=== PATIENT | female | born 1960 | race Caucasian/White ===

== ENCOUNTER 2016-12-30 09:59 | Emergency (ER) | payer OTHER ==
--- NOTE | 2016-12-30 11:40 | ED CLINICAL REPORT ---
Clinical Report - Physicians/Mid Levels [facility] [address] [place] [address] 12/30/2016 9:58 Patient: NITO KAUFFMAN PROGRESS AND PROCEDURES Course of Care: Left AMA - Without being seen. (Electronically signed by Gibran Hammond MD 12/30/2016 11:45)
--- NOTE | 2016-12-30 11:40 | ED NURSING NOTES ---
Clinical Report - Nurses [facility] [address] [place] [address] 12/30/2016 9:58 [id number] Triage time 10:Dec 30 2016. Acuity: LEVEL 3. Chief Complaint: NECK PAIN and BACK PAIN. --10:10 Connie Funez R.N. 10:05 12/30/16. BP: 131/101. HR: 110. RR: 18. O2 saturation: 99%. Temp: 98.5 F. Pain level now 04/17. --10:10 Connie Funez R.N. Weight: 70.3 kg stated. Height/Length: 68 inches Per Patient. BMI: 23.6. --10:09 Connie Funez R.N. Medications CeleXA Oral. Hyrdochlorothiazide 25 mg, daily. --10:06 Connie Funez R.N. TiZANidine HCl Oral. --10:07 Connie Funez R.N. Vicodin Oral. --10:07 Connie Funez R.N. Allergies Doxycycline. --10:07 Connie Funez R.N. History Arrived by private vehicle. Historian: patient. Onset. (Past couple of days). ( Is helping someone move and was carrying a cat tree down the stairs and she thinks it hurt her back.). No history of recent trauma. No numbness, weakness, tingling, trouble walking or fever. No extremity pain. PAST MEDICAL HX: Tetanus status: up-to-date. The patient is post-menopausal. SOCIAL HX: Heavy tobacco smoker- 1 pack per day. No alcohol use or drug use. SELF HARM ASSESSMENT: A self harm assessment was performed. The patient answered "no" to the question "Have you recently felt down, depressed, or hopeless?" and "Do you have thoughts of harming or killing yourself?". FALL RISK ASSESSMENT: Fall risk assessment completed. No fall risk identified. NUTRITIONAL RISK ASSESSMENT: The nutritional risk assessment revealed no deficiencies. FUNCTIONAL ASSESSMENT: Functional assessment: no impairments noted. LEARNING NEEDS ASSESSMENT: The learning needs assessment revealed no barriers. ABUSE ASSESSMENT: Abuse assessment: (yes) The patient was asked "Do you feel safe in your home?". SKIN INTEGRITY ASSESSMENT: Skin integrity risk assessment completed. No skin integrity risk identified. --10:10 Connie Funez R.N. PROBLEMS: Back Pain. Tendonitis. Myofascial Strain. Intervertebral Disc Disease. Dental Abscess. Strep Throat. Abscess. Lumbar Strain. Immunizations. Arthritis. Chronic Back Pain. Vomiting. Hypokalemia. Dental Pain. Dental Caries. --10:07 Connie Funez R.N. ADDITIONAL SURGERIES: Carpal Tunnel Surgery. Shoulder Surgery. Tubal Ligation. --10:07 Connie Funez R.N. Interventions ID and allergy band on patient. --10:10 Connie Funez R.N. PHYSICAL ASSESSMENT Ambulatory to room. GENERAL / NEURO / PSYCH: Alert. Oriented X 4. Appears anxious. RESPIRATORY: Respirations not labored. Chest nontender. Breath sounds within normal limits. CVS: Normal heart rate and rhythm. Capillary refill less than 2 seconds. GI / : Abdomen soft and nontender. Bowel sounds within normal limits. EXTREMITIES: Sensation intact in extremities. ROM of extremities within normal limits. BACK: Normal inspection of the neck and back. ROM of neck and back within normal limits. Soft tissue tenderness. --10:10 Connie Funez R.N. NURSING PROGRESS NOTES The initial plan of care for this patient includes an assessment with efforts to address patient positioning, appropriate ambient lighting and comfortable environmental temperature; impairment of the musculoskeletal system. Pulse oximeter and NIBP monitor placed on patient. Cold pack applied. Patient gowned. Head of bed elevated 90 degrees. Reassurance given. Call light placed in reach. Side rails up x 1. Bed placed in lowest position. Brakes of bed on. --10:11 Connie Funez R.N. 11:00 12/30/16. BP: 127/92. HR: 110. RR: 20. O2 saturation: 94%. 10:15 12/30/16. BP: 135/86. HR: 104. RR: 20. O2 saturation: 95%. --12:03 Connie Funez R.N. DISPOSITION / DISCHARGE Departure time: 11:30 Dec 30 2016. The patient left prior to discharge education being provided. The patient left the Emergency Department without being seen by a physician and completion of treatment and against medical advice; patient was unaccompanied. The patient appears to be alert, oriented x4, coherent and in no acute distress. Gown found on bed. Unable to locate patient. Patient paged once with no response. The patient stated is leaving the ED due to the long waiting time. Notified the ED physician and charge nurse of patient departure. Prior to leaving the ED, she was advised to stay for completion of treatment. She was informed of the risks of leaving and verbalized understanding of these risks. Patient refused to sign form prior to leaving. She left the Emergency Department ambulatory and via private vehicle. --11:57 Connie Funez R.N. Locked/Released at 12/30/2016 12:03 by Connie Funez R.N.
--- NOTE | 2016-12-30 11:40 | ED CLINICAL REPORT ---
Clinical Report - Physicians/Mid Levels [place] [address] [place] [place] [address] 12/30/2016 9:58 Patient: NITO KAUFFMAN PROGRESS AND PROCEDURES Course of Care: Left AMA - Without being seen. (Electronically signed by Gibran Hammond MD 12/30/2016 11:45)
--- NOTE | 2016-12-30 12:04 | ED MED RECONCILIATION SUMMARY ---
Patient: NITO KAUFFMAN Medication Reconciliation Report Located Within [facility] VisitID: [id number] [address] [place] [address] 56y, F Registration Date/Time: 12/30/2016 Weight: 70.3 kg Height/Length: 68 in. BMI: 23.6 ALLERGIES: Doxycycline The patient's Home Medications are listed below: THE FOLLOWING MEDICATIONS NEED TO BE RECONCILED: CeleXA Oral Hyrdochlorothiazide 25 mg, daily TiZANidine HCl Oral Vicodin Oral The source(s) of the original Home Medication information: Not obtained. The following Medications were given to the patient in the Emergency Department: None. The following Medications were prescribed to the patient: None.
--- NOTE | 2016-12-30 12:04 | ED MED RECONCILIATION SUMMARY ---
Patient: NITO KAUFFMAN Medication Reconciliation Report [facility] VisitID: [id number] [address] [address] 56y, F Registration Date/Time: 12/30/2016 Weight: 70.3 kg Height/Length: 68 in. BMI: 23.6 ALLERGIES: Doxycycline The patient's Home Medications are listed below: THE FOLLOWING MEDICATIONS NEED TO BE RECONCILED: CeleXA Oral Hyrdochlorothiazide 25 mg, daily TiZANidine HCl Oral Vicodin Oral The source(s) of the original Home Medication information: Not obtained. The following Medications were given to the patient in the Emergency Department: None. The following Medications were prescribed to the patient: None.
--- NOTE | 2016-12-30 12:04 | ED MAR SUMMARY ---
..... Medication Administration Record [facility] [address] [place], [place] [id number] Patient: NITO KAUFFMAN Visit ID: [id number] 56y, F Weight: 70.3 kg Height/Length: 68 in BMI: 23.6 ALLERGIES: Doxycycline
--- NOTE | 2016-12-30 12:04 | ED MAR SUMMARY ---
..... Medication Administration Record [facility] [address] [place], [place] [id number] Patient: NITO KAUFFMAN Visit ID: [id number] 56y, F Weight: 70.3 kg Height/Length: 68 in BMI: 23.6 ALLERGIES: Doxycycline
== END 2016-12-30 11:40 | disposition left against medical advice (07) ==
LOC: ED SRH 09:59
DX: Z53.21 Procedure and treatment not carried out due to patient leaving prior to being seen by health care provider (principal)

== ENCOUNTER 2017-01-21 14:14 | Emergency (ER) | payer OTHER ==
--- NOTE | 2017-01-21 14:48 | ED CLINICAL REPORT ---
Clinical Report - Physicians/Mid Levels [facility] [address] [place] [place] [address] 01/21/2017 14:15 Patient: NITO KAUFFMAN Time Seen: 1436; upon arrival, initial patient contact, initial documentation, patient care assumed. Arrived- By private vehicle. Historian- patient. HISTORY OF PRESENT ILLNESS Chief Complaint: BACK PAIN and CHRONIC BACK PAIN. It is described as being severe and in the area of the right lower lumbar spine, right SI joint and right gluteus and radiating to the right hip and thigh. The quality is noted to be "pain" and similar to prior episodes. Modifying factors- worsened by walking. Not relieved by anything. Onset- years and it is still present (worse 2 weeks ago). No bladder dysfunction, bowel dysfunction, sensory loss or motor loss. Additional history - pt asking for soma, then ultram, then a nerve block, then something to decrease pressure on her nerves. Patient denies an injury but injury to the head or neck. No other injury. Similar symptoms previously: Chronically, as bad. Recent medical care: Not recently seen/assessed. REVIEW OF SYSTEMS No difficulty with urination, urinary frequency, hematuria, difficulty breathing or chest pain. No abdominal pain. All systems otherwise negative, except as recorded above. PAST HISTORY See nurses notes. PROBLEMS: Back Pain. Tendonitis. Myofascial Strain. Intervertebral Disc Disease. Dental Abscess. Strep Throat. Abscess. Lumbar Strain. Immunizations. Arthritis. Chronic Back Pain. Vomiting. Hypokalemia. Dental Pain. Dental Caries. LNMP - Last Normal Menstrual Period. --14:35 Kisha Che R.N. ADDITIONAL SURGERIES: Carpal Tunnel Surgery. Shoulder Surgery. Tubal Ligation. --14:35 Kisha Che R.N. SOCIAL HISTORY Heavy tobacco smoker. No alcohol use or drug use. No recent travel. Is a local resident. FAMILY HISTORY Negative. ADDITIONAL NOTES The nursing notes have been reviewed with agreement regarding the chief complaint, HPI, ROS, PMH and patient medications and allergies. PHYSICAL EXAM Vital Signs: 01/21/2017 14:31 BP: 111/85. HR: 95. RR: 20. O2 saturation: 98%. Temp: 97.9 F. Pain level now: 04/17. Have been reviewed as normal and appear to be correct. Appearance: Alert. No acute distress. Anxious. (pt appears under the influence). Neck: Normal inspection. Neck nontender. Painless ROM. CVS: Heart sounds normal. Pulses normal. Respiratory: No respiratory distress. Breath sounds normal. Abdomen: No visible injury. Soft and nontender. Back: Normal inspection. No tenderness. Painless ROM. Skin: Skin warm and dry. Normal skin color. No rash. Normal skin turgor. Extremities: Extremities exhibit normal ROM. Extremities nontender. Neuro: Oriented X 3. Mood/affect normal. No motor deficit. No sensory deficit. PROGRESS AND PROCEDURES Course of Care: pt has uma for frequent narcs, last rx 4/5 hydrocodone 5mg #84, over 1,800 pills and monthly rx's, recommendations for no narcs, opiods, controlled substances in ER, see report for full details tx options discussed, pt aware that no narcs or controlled substances would be given, pt stated she had some motrin already at home, willing to try the toradol shot and whatever else I would give her. Patient counseled in person regarding the patient's stable condition and diagnosis. Differential Diagnosis: I considered Musculo-skeletal strain, retroperitoneal hematoma, disk protrusion, vertebral fracture, facet syndrome, sacroiliac joint strain, sciatica, osteoarthritis, lumbar spondylosis, spinal stenosis, ankylosing spondylitis and sacroiliac joint inflammation as a possible cause of back pain in this patient. This is a partial list of diagnoses considered. (substance abuse). Above considerations are based on history and physical exam. Differential diagnosis was discussed with patient. Disposition: Discharged home in good and improved condition (14:47). Condition: good and stable. CLINICAL IMPRESSION Chronic nontraumatic lumbar back pain. Sciatica present on the right. No radiculopathy or neurological deficit. INSTRUCTIONS Warnings: GENERAL WARNINGS: Return or contact your physician immediately if your condition worsens or changes unexpectedly, if not improving as expected, or if other problems arise. SPECIFICALLY, return if you develop incontinence of urine (loss of bladder control). Prescription Medications: Medrol Dosepak: take according to package directions. Dispense one (1) dosepak. No refills. Substitution is permissible. Follow-up: Follow up with your doctor in about one week as needed. Call for an appointment. Summary of care provided to patient. Understanding of the discharge instructions verbalized by patient. (Electronically signed by Jaki Herrera A.R.N.P. 01/21/2017 17:33)
--- NOTE | 2017-01-21 14:48 | ED NURSING NOTES ---
Clinical Report - Nurses [facility] [address] [place] [address] 01/21/2017 14:15 Patient: NITO KAUFFMAN TRIAGE Acuity: LEVEL 4. Chief Complaint: RIGHT LOWER EXTREMITY PAIN. Alert. No acute distress. SEPSIS SCREEN: Sepsis Screen. Negative (no infection suspected/documented). [place] COMA SCORE: [place] Coma Scale: 15- eyes open spontaneously (4); best verbal response- oriented x 4 (5); best motor response- obeys commands (6). --14:37 Kisha Che R.N. 14:31 01/21/17. BP: 111/85. HR: 95. RR: 20. O2 saturation: 98% on room air. Temp: 97.9 F (oral). Pain level now: 04/17. --14:37 Kisha Che R.N. Weight: 68 kg stated. Height/Length: 66 inches Per Patient. BMI: 24.2. --14:35 Kisha Che R.N. Medications CeleXA Oral. TiZANidine HCl Oral. Vicodin Oral. --14:35 Kisha Che R.N. HydrOXYzine HCl Oral. --14:35 Kisha Che R.N. Medication/allergy information source: the patient. --14:37 Kisha Che R.N. Allergies Doxycycline. --14:35 Kisha Che R.N. History Arrived by private vehicle. Historian: patient. Unaccompanied. Primary physician (Aleksey). No injury occurred. This occurred (2 weeks ago). ( Pt reports pain from her right buttock to the bottom of her right foot. She reports she has been moving some heavy objects.). 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 PAST MEDICAL HX: The patient is post-menopausal. SOCIAL HX: Current every day heavy tobacco smoker (cigarette)- less than 1 pack per day. No alcohol use or drug use. FALL RISK ASSESSMENT: Fall risk assessment completed. No fall risk identified. NUTRITIONAL RISK ASSESSMENT: The nutritional risk assessment revealed no deficiencies. FUNCTIONAL ASSESSMENT: Functional assessment: no impairments noted. LEARNING NEEDS ASSESSMENT: The learning needs assessment revealed no barriers. SKIN INTEGRITY ASSESSMENT: Skin integrity risk assessment completed. No skin integrity risk identified. --14:37 Kisha Che R.N. PROBLEMS: Back Pain. Tendonitis. Myofascial Strain. Intervertebral Disc Disease. Dental Abscess. Strep Throat. Abscess. Lumbar Strain. Immunizations. Arthritis. Chronic Back Pain. Vomiting. Hypokalemia. Dental Pain. Dental Caries. LNMP - Last Normal Menstrual Period. --14:35 Kisha Che R.N. ADDITIONAL SURGERIES: Carpal Tunnel Surgery. Shoulder Surgery. Tubal Ligation. --14:35 Kisha Che R.N. Assessment GENERAL / NEURO / PSYCH: Alert. Oriented X 4. Appears in no acute distress. Patient appears calm and cooperative. RESPIRATORY: Respirations not labored. CVS: Capillary refill less than 2 seconds. GI / : Abdomen soft and nontender. SKIN: Mucous membranes are pink. Skin is warm and dry. --14:37 Kisha Che R.N. Interventions ID band on patient. To treatment room. --14:37 Kisha Che R.N. PHYSICAL ASSESSMENT Ambulatory to room. GENERAL / NEURO / PSYCH: Oriented X 4. Alert. Appears in no acute distress. EXTREMITIES: Extremity pulses are within normal limits. Extremities exhibit normal ROM. Neuro-vascular status intact to the extremity. Normal gait. SKIN: Skin intact. Skin is warm and dry. --14:37 Kisha Che R.N. NURSING PROGRESS NOTES 14:38 01/21/17. Patient gowned. Two patient identifiers checked. Call light placed in reach. Side rails up x 1. Patient ready for evaluation- chart flagged and RAG SORTER notified. --14:38 Kisha Che R.N. 14:54 01/21/2017 Toradol (Ketorolac Tromethamine) IM 60 mg given. Given in the left gluteus marlyn. Allergies verified and confirmed 5 rights. --14:54 Kisha Che R.N. DISPOSITION / DISCHARGE Departure time: 15:00 Jan 21 2017. Condition at departure: unchanged and stable. No learning barriers present. Discharge instructions provided and reviewed with the patient. Reviewed medication(s) side effects, precautions and dosing information. Prescription(s) given to the patient. Patient verbalized understanding. Written instructions provided in Brazilian. The patient was discharged by the nurse practitioner. She was discharged home. She left the Emergency Department ambulatory and via private vehicle. --15:13 Kisha Che R.N. Locked/Released at 01/21/2017 15:14 by Kisha Che R.N.
--- NOTE | 2017-01-21 14:48 | ED ORDER SUMMARY ---
..... Patient: NITO KAUFFMNA OrderSheet [facility] VisitID: [id number] [address] [place] [address] 57y, F Registration Date/Time: 01/21/2017 ORDER SHEET Weight: 68.0 kg (stated) Allergies: Doxycycline GENERAL ORDERS: MEDICATION ORDERS: Toradol IM 60 mg (NOW) (14:42 01/21/2017 HBivens A.R.N.P.) (Ack 14:47 MWinterer R.N.) (14:54 MWinterer R.N.) IV FLUIDS: ORDER SHEET NOTES: [Electronically signed by Kisha Che R.N. (15:14 01/21/2017)] [Electronically signed by Jaki HerreraR.N.P. (17:33 01/21/2017)] [Electronically locked/signed by Kisha Che R.N. (15:14 01/21/2017)]
--- NOTE | 2017-01-21 14:48 | ED ORDER SUMMARY ---
..... Patient: NITO KAUFFMAN OrderSheet [facility] VisitID: [id number] [address] [place] [address] 57y, F Registration Date/Time: 01/21/2017 ORDER SHEET Weight: 68.0 kg (stated) Allergies: Doxycycline GENERAL ORDERS: MEDICATION ORDERS: Toradol IM 60 mg (NOW) (14:42 01/21/2017 HBivens A.R.N.P.) (Ack 14:47 MWinterer R.N.) (14:54 MWinterer R.N.) IV FLUIDS: ORDER SHEET NOTES: [Electronically signed by Kisha Che R.N. (15:14 01/21/2017)] [Electronically signed by Jaki HerreraR.N.P. (17:33 01/21/2017)] [Electronically locked/signed by Kisha Che R.N. (15:14 01/21/2017)]
--- NOTE | 2017-01-21 14:48 | ED NURSING NOTES ---
Clinical Report - Nurses [facility] [address] [place] [address] 01/21/2017 14:15 Patient: NITO KAUFFMAN TRIAGE Acuity: LEVEL 4. Chief Complaint: RIGHT LOWER EXTREMITY PAIN. Alert. No acute distress. SEPSIS SCREEN: Sepsis Screen. Negative (no infection suspected/documented). [place] COMA SCORE: [place] Coma Scale: 15- eyes open spontaneously (4); best verbal response- oriented x 4 (5); best motor response- obeys commands (6). --14:37 Kisha Che R.N. 14:31 01/21/17. BP: 111/85. HR: 95. RR: 20. O2 saturation: 98% on room air. Temp: 97.9 F (oral). Pain level now: 04/17. --14:37 Kisha Che R.N. Weight: 68 kg stated. Height/Length: 66 inches Per Patient. BMI: 24.2. --14:35 Kisha Che R.N. Medications CeleXA Oral. TiZANidine HCl Oral. Vicodin Oral. --14:35 Kisha Che R.N. HydrOXYzine HCl Oral. --14:35 Kisha Che R.N. Medication/allergy information source: the patient. --14:37 Kisha Che R.N. Allergies Doxycycline. --14:35 Kisha Che R.N. History Arrived by private vehicle. Historian: patient. Unaccompanied. Primary physician (Aleksey). No injury occurred. This occurred (2 weeks ago). ( Pt reports pain from her right buttock to the bottom of her right foot. She reports she has been moving some heavy objects.). Treatment SUPERVISOR CLAM BED: None. PAST MEDICAL HX: The patient is post-menopausal. SOCIAL HX: Current every day heavy tobacco smoker (cigarette)- less than 1 pack per day. No alcohol use or drug use. FALL RISK ASSESSMENT: Fall risk assessment completed. No fall risk identified. NUTRITIONAL RISK ASSESSMENT: The nutritional risk assessment revealed no deficiencies. FUNCTIONAL ASSESSMENT: Functional assessment: no impairments noted. LEARNING NEEDS ASSESSMENT: The learning needs assessment revealed no barriers. SKIN INTEGRITY ASSESSMENT: Skin integrity risk assessment completed. No skin integrity risk identified. --14:37 Kisha Che R.N. PROBLEMS: Back Pain. Tendonitis. Myofascial Strain. Intervertebral Disc Disease. Dental Abscess. Strep Throat. Abscess. Lumbar Strain. Immunizations. Arthritis. Chronic Back Pain. Vomiting. Hypokalemia. Dental Pain. Dental Caries. LNMP - Last Normal Menstrual Period. --14:35 Kisha Che R.N. ADDITIONAL SURGERIES: Carpal Tunnel Surgery. Shoulder Surgery. Tubal Ligation. --14:35 Kisha Che R.N. Assessment GENERAL / NEURO / PSYCH: Alert. Oriented X 4. Appears in no acute distress. Patient appears calm and cooperative. RESPIRATORY: Respirations not labored. CVS: Capillary refill less than 2 seconds. GI / : Abdomen soft and nontender. SKIN: Mucous membranes are pink. Skin is warm and dry. --14:37 Kisha Che R.N. Interventions ID band on patient. To treatment room. --14:37 Kisha Che R.N. PHYSICAL ASSESSMENT Ambulatory to room. GENERAL / NEURO / PSYCH: Oriented X 4. Alert. Appears in no acute distress. EXTREMITIES: Extremity pulses are within normal limits. Extremities exhibit normal ROM. Neuro-vascular status intact to the extremity. Normal gait. SKIN: Skin intact. Skin is warm and dry. --14:37 Kisha Che R.N. NURSING PROGRESS NOTES 14:38 01/21/17. Patient gowned. Two patient identifiers checked. Call light placed in reach. Side rails up x 1. Patient ready for evaluation- chart flagged and CORK SLABS SAWYER notified. --14:38 Kisha Che R.N. 14:54 01/21/2017 Toradol (Ketorolac Tromethamine) IM 60 mg given. Given in the left gluteus marlyn. Allergies verified and confirmed 5 rights. --14:54 Kisha Che R.N. DISPOSITION / DISCHARGE Departure time: 15:00 Jan 21 2017. Condition at departure: unchanged and stable. No learning barriers present. Discharge instructions provided and reviewed with the patient. Reviewed medication(s) side effects, precautions and dosing information. Prescription(s) given to the patient. Patient verbalized understanding. Written instructions provided in [place]. The patient was discharged by the nurse practitioner. She was discharged home. She left the Emergency Department ambulatory and via private vehicle. --15:13 Kisha Che R.N. Locked/Released at 01/21/2017 15:14 by Kisha Che R.N.
--- NOTE | 2017-01-21 17:33 | ED MAR SUMMARY ---
..... Medication Administration Record [facility] [address] [address] Patient: NITO KAUFFMAN Visit ID: [id number] 57y, F Weight: 68.0 kg Height/Length: 66 in BMI: 24.2 ALLERGIES: Doxycycline Given 14:54 01/21/2017 Kisha Che R.N. Medication Administered: TORADOL [IM] (KETOROLAC TROMETHAMINE), Dose: 60 mg IM. Medication Ordered: Toradol IM 60 mg (NOW).
--- NOTE | 2017-01-21 17:33 | ED MED RECONCILIATION SUMMARY ---
Patient: NITO KAUFFMAN Medication Reconciliation Report [facility] VisitID: [id number] [address] [place] [address] 57y, F Registration Date/Time: 01/21/2017 Weight: 68.0 kg Height/Length: 66 in. BMI: 24.2 ALLERGIES: Doxycycline The patient's Home Medications are listed below: THE FOLLOWING MEDICATIONS NEED TO BE RECONCILED: CeleXA Oral HydrOXYzine HCl Oral TiZANidine HCl Oral Vicodin Oral The source(s) of the original Home Medication information: patient The following Medications were given to the patient in the Emergency Department: Toradol [IM] IM 60 mg, administered: 01/21/2017 2:54:00 PM The following Medications were prescribed to the patient: Medrol Dosepak: take according to package directions. Dispense one (1) dosepak. No refills. Substitution is permissible. -- Jaki Herrera A.R.N.P.
--- NOTE | 2017-01-21 17:33 | ED DISCHARGE INSTRUCTIONS ---
Patient: NITO KAUFFMAN General Instructions [facility] VisitID: [id number] [place] [address] 57y, F Registration Date/Time: 01/21/2017 Chronic nontraumatic lumbar back pain. Sciatica present on the right. No radiculopathy or neurological deficit. INSTRUCTIONS Warnings: GENERAL WARNINGS: Return or contact your physician immediately if your condition worsens or changes unexpectedly, if not improving as expected, or if other problems arise. SPECIFICALLY, return if you develop incontinence of urine (loss of bladder control). Prescription Medications: Medrol Dosepak: take according to package directions. Dispense one (1) dosepak. No refills. Substitution is permissible. Follow-up: Follow up with your doctor in about one week as needed. Call for an appointment. Summary of care provided to patient. Understanding of the discharge instructions verbalized by patient. ADDITIONAL INFORMATION Back Pain [Acute Or Chronic] Back pain is usually caused by an injury to the muscles or ligaments of the spine. Sometimes the disks that separate each bone in the spine may bulge and cause pain by pressing on a nearby nerve. Back pain may also appear after a sudden twisting/bending force (such as in a car accident), after a simple awkward movement, or lifting something heavy with poor body positioning. In either case, muscle spasm is often present and adds to the pain. Acute back pain usually gets better in one to two weeks. Back pain related to disk disease, arthritis in the spinal joints or spinal stenosis (narrowing of the spinal canal) can become chronic and last for months or years. Unless you had a physical injury (for example, a car accident or fall) X-rays are usually not ordered for the initial evaluation of back pain. If pain continues and does not respond to medical treatment, x-rays and other tests may be performed at a later time. Home Care: You may need to stay in bed the first few days. But, as soon as possible, begin sitting or walking to avoid problems with prolonged bed rest (muscle weakness, worsening back stiffness and pain, blood clots in the legs). When in bed, try to find a position of comfort. A firm mattress is best. Try lying flat on your back with pillows under your knees. You can also try lying on your side with your knees bent up towards your chest and a pillow between your knees. Avoid prolonged sitting. This puts more stress on the lower back than standing or walking. During the first two days after injury, apply an ICE PACK to the painful area for 20 minutes every 2-4 hours. This will reduce swelling and pain. HEAT (hot shower, hot bath or heating pad) works well for muscle spasm. You can start with ice, then switch to heat after two days. Some patients feel best alternating ice and heat treatments. Use the one method that feels the best to you. You may use acetaminophen (Tylenol) or ibuprofen (Motrin, Advil) to control pain, unless another pain medicine was prescribed. [NOTE: If you have chronic liver or kidney disease or ever had a stomach ulcer or GI bleeding, talk with your doctor before using these medicines.] Be aware of safe lifting methods and do not lift anything over 15 pounds until all the pain is gone. Follow Up with your doctor or this facility if your symptoms do not start to improve after one week. Physical therapy may be needed. [NOTE: If X-rays were taken, they will be reviewed by a radiologist. You will be notified of any new findings that may affect your care.] Get Prompt Medical Attention if any of the following occur: Pain becomes worse or spreads to your legs Weakness or numbness in one or both legs Loss of bowel or bladder control Numbness in the groin or genital area Sciatica Sciatica ("Lumbar Radiculopathy") causes a pain that spreads from the lower back down into the buttock, hip and leg. Sometimes leg pain can occur without any back pain. Sciatica is due to irritation or pressure on a spinal nerve as it comes out of the spinal canal. This is most often due to a bulge or rupture of a nearby spinal disk (the cartilage cushion between each spinal bone), which presses on a nearby nerve. Other causes include spinal stenosis (narrowing of the spinal canal) and spasm of the pyriform muscle (a muscle in the buttocks that the sciatic nerve passes through). Sciatica may begin after a sudden twisting/bending force (such as in a car accident), or sometimes after a simple awkward movement. In either case, muscle spasm is commonly present and contributes to the pain. The diagnosis of sciatica is made from the symptoms and physical exam. Unless you had a physical injury (such as a car accident or fall), X-rays are usually not ordered for the initial evaluation of sciatica because the nerves and disks cannot be seen on an x-ray. If signs of a compressed nerve are present (for example, loss of tendon reflex or strength in the leg), an MRI (magnetic resonance imaging) scan will need to be scheduled as an outpatient. Most sciatica (80-90%) gets better with medicine, exercise, physical therapy. If symptoms continue after at least three months of medical treatment, surgery may be considered. Home Care: You may need to stay in bed the first few days. But, as soon as possible, begin sitting or walking to avoid problems with prolonged bed rest. When in bed, try to find a position of comfort. A firm mattress is best. Try lying flat on your back with pillows under your knees. You can also try lying on your side with your knees bent up towards your chest and a pillow between your knees. Avoid prolonged sitting. This puts more stress on the lower back than standing or walking. Some persons find relief with heat (hot shower, hot bath or heating pad) and massage, while others prefer cold packs (crushed or cubed ice in a plastic bag, wrapped in a towel). Try both and use the method that feels best for 20 minutes several times a day. You may use acetaminophen (Tylenol) or ibuprofen (Motrin, Advil) to control pain, unless another pain medicine was prescribed. [ NOTE: If you have chronic liver or kidney disease or ever had a stomach ulcer or GI bleeding, talk with your doctor before using these medicines.] Be aware of safe lifting methods and do not lift anything over 15 pounds until all the pain is gone. Follow Up with your doctor or this facility if your symptoms do not start to improve after one week. Physical therapy or further testing may be needed. [NOTE: If X-rays were taken, they will be reviewed by a radiologist. You will be notified of any new findings that may affect your care.] Get Prompt Medical Attention if any of the following occur: Pain becomes worse, not controlled by the prescribed medicine Weakness or numbness in one or both legs Numbness in the groin, genital area Loss of bowel or bladder control Methylprednisolone Oral tablet What is this medicine? METHYLPREDNISOLONE (meth ill pred NISS oh lone) is a corticosteroid. It is commonly used to treat inflammation of the skin, joints, lungs, and other organs. Common conditions treated include asthma, allergies, and arthritis. It is also used for other conditions, such as blood disorders and diseases of the adrenal glands. How should I use this medicine? Take this medicine by mouth with a drink of water. Follow the directions on the prescription label. Take it with food or milk to avoid stomach upset. If you are taking this medicine once a day, take it in the morning. Do not take more medicine than you are told to take. Do not suddenly stop taking your medicine because you may develop a severe reaction. Your doctor will tell you how much medicine to take. If your doctor wants you to stop the medicine, the dose may be slowly lowered over time to avoid any side effects. Talk to your high school hvac r instructor regarding the use of this medicine in children. Special care may be needed. What side effects may I notice from receiving this medicine? Side effects that you should report to your doctor or health healthcare risk control consultant as soon as possible: allergic reactions like skin rash, itching or hives, swelling of the face, lips, or tongue eye pain, decreased or blurred vision, or bulging eyes fever, sore throat, sneezing, cough, or other signs of infection, wounds that will not heal increased thirst mental depression, mood swings, mistaken feelings of self importance or of being mistreated pain in hips, back, ribs, arms, shoulders, or legs swelling of the ankles, feet, hands trouble passing urine or change in the amount of urine Side effects that usually do not require medical attention (report to your doctor or health healthcare risk control consultant if they continue or are bothersome): confusion, excitement, restlessness headache nausea, vomiting skin problems, acne, thin and shiny skin weight gain What may interact with this medicine? Do not take this medicine with any of the following medications: mifepristone This medicine may also interact with the following medications: tacrolimus vaccines warfarin What if I miss a dose? If you miss a dose, take it as soon as you can. If it is almost time for your next dose, talk to your doctor or health healthcare risk control consultant. You may need to miss a dose or take an extra dose. Do not take double or extra doses without advice. Where should I keep my medicine? Keep out of the reach of children. Store at room temperature between 20 and 25 degrees C (68 and 77 degrees F). Throw away any unused medicine after the expiration date. What should I tell my health care provider before I take this medicine? They need to know if you have any of these conditions: Maurice's syndrome diabetes glaucoma heart problems or disease high blood pressure infection such as herpes, measles, tuberculosis, or chickenpox kidney disease liver disease mental problems myasthenia gravis osteoporosis seizures stomach ulcer or intestine disease including colitis and diverticulitis thyroid problem an unusual or allergic reaction to lactose, methylprednisolone, other medicines, foods, dyes, or preservatives or trying to get breast-feeding What should I watch for while using this medicine? Visit your doctor or health healthcare risk control consultant for regular checks on your progress. If you are taking this medicine for a long time, carry an identification card with your name and address, the type and dose of your medicine, and your doctor's name and address. The medicine may increase your risk of getting an infection. Stay away from people who are sick. Tell your doctor or health healthcare risk control consultant if you are around anyone with measles or chickenpox. If you are going to have surgery, tell your doctor or health healthcare risk control consultant that you have taken this medicine within the last twelve months. Ask your doctor or health healthcare risk control consultant about your diet. You may need to lower the amount of salt you eat. The medicine can increase your blood sugar. If you are a diabetic check with your doctor if you need help adjusting the dose of your diabetic medicine. You have been given the following additional information: Back Pain (Acute Or Chronic) Back Pain W/ Sciatica Methylprednisolone Oral tablet (Electronically signed by Jaki Herrera A.R.N.P. 01/21/2017 17:33)
--- NOTE | 2017-01-21 17:33 | ED DISCHARGE INSTRUCTIONS ---
Patient: NITO KAUFFMAN General Instructions [facility] VisitID: [id number] [place] [address] 57y, F Registration Date/Time: 01/21/2017 Chronic nontraumatic lumbar back pain. Sciatica present on the right. No radiculopathy or neurological deficit. INSTRUCTIONS Warnings: GENERAL WARNINGS: Return or contact your physician immediately if your condition worsens or changes unexpectedly, if not improving as expected, or if other problems arise. SPECIFICALLY, return if you develop incontinence of urine (loss of bladder control). Prescription Medications: Medrol Dosepak: take according to package directions. Dispense one (1) dosepak. No refills. Substitution is permissible. Follow-up: Follow up with your doctor in about one week as needed. Call for an appointment. Summary of care provided to patient. Understanding of the discharge instructions verbalized by patient. ADDITIONAL INFORMATION Back Pain [Acute Or Chronic] Back pain is usually caused by an injury to the muscles or ligaments of the spine. Sometimes the disks that separate each bone in the spine may bulge and cause pain by pressing on a nearby nerve. Back pain may also appear after a sudden twisting/bending force (such as in a car accident), after a simple awkward movement, or lifting something heavy with poor body positioning. In either case, muscle spasm is often present and adds to the pain. Acute back pain usually gets better in one to two weeks. Back pain related to disk disease, arthritis in the spinal joints or spinal stenosis (narrowing of the spinal canal) can become chronic and last for months or years. Unless you had a physical injury (for example, a car accident or fall) X-rays are usually not ordered for the initial evaluation of back pain. If pain continues and does not respond to medical treatment, x-rays and other tests may be performed at a later time. Home Care: You may need to stay in bed the first few days. But, as soon as possible, begin sitting or walking to avoid problems with prolonged bed rest (muscle weakness, worsening back stiffness and pain, blood clots in the legs). When in bed, try to find a position of comfort. A firm mattress is best. Try lying flat on your back with pillows under your knees. You can also try lying on your side with your knees bent up towards your chest and a pillow between your knees. Avoid prolonged sitting. This puts more stress on the lower back than standing or walking. During the first two days after injury, apply an ICE PACK to the painful area for 20 minutes every 2-4 hours. This will reduce swelling and pain. HEAT (hot shower, hot bath or heating pad) works well for muscle spasm. You can start with ice, then switch to heat after two days. Some patients feel best alternating ice and heat treatments. Use the one method that feels the best to you. You may use acetaminophen (Tylenol) or ibuprofen (Motrin, Advil) to control pain, unless another pain medicine was prescribed. [NOTE: If you have chronic liver or kidney disease or ever had a stomach ulcer or GI bleeding, talk with your doctor before using these medicines.] Be aware of safe lifting methods and do not lift anything over 15 pounds until all the pain is gone. Follow Up with your doctor or this facility if your symptoms do not start to improve after one week. Physical therapy may be needed. [NOTE: If X-rays were taken, they will be reviewed by a radiologist. You will be notified of any new findings that may affect your care.] Get Prompt Medical Attention if any of the following occur: Pain becomes worse or spreads to your legs Weakness or numbness in one or both legs Loss of bowel or bladder control Numbness in the groin or genital area Sciatica Sciatica ("Lumbar Radiculopathy") causes a pain that spreads from the lower back down into the buttock, hip and leg. Sometimes leg pain can occur without any back pain. Sciatica is due to irritation or pressure on a spinal nerve as it comes out of the spinal canal. This is most often due to a bulge or rupture of a nearby spinal disk (the cartilage cushion between each spinal bone), which presses on a nearby nerve. Other causes include spinal stenosis (narrowing of the spinal canal) and spasm of the pyriform muscle (a muscle in the buttocks that the sciatic nerve passes through). Sciatica may begin after a sudden twisting/bending force (such as in a car accident), or sometimes after a simple awkward movement. In either case, muscle spasm is commonly present and contributes to the pain. The diagnosis of sciatica is made from the symptoms and physical exam. Unless you had a physical injury (such as a car accident or fall), X-rays are usually not ordered for the initial evaluation of sciatica because the nerves and disks cannot be seen on an x-ray. If signs of a compressed nerve are present (for example, loss of tendon reflex or strength in the leg), an MRI (magnetic resonance imaging) scan will need to be scheduled as an outpatient. Most sciatica (80-90%) gets better with medicine, exercise, physical therapy. If symptoms continue after at least three months of medical treatment, surgery may be considered. Home Care: You may need to stay in bed the first few days. But, as soon as possible, begin sitting or walking to avoid problems with prolonged bed rest. When in bed, try to find a position of comfort. A firm mattress is best. Try lying flat on your back with pillows under your knees. You can also try lying on your side with your knees bent up towards your chest and a pillow between your knees. Avoid prolonged sitting. This puts more stress on the lower back than standing or walking. Some persons find relief with heat (hot shower, hot bath or heating pad) and massage, while others prefer cold packs (crushed or cubed ice in a plastic bag, wrapped in a towel). Try both and use the method that feels best for 20 minutes several times a day. You may use acetaminophen (Tylenol) or ibuprofen (Motrin, Advil) to control pain, unless another pain medicine was prescribed. [ NOTE: If you have chronic liver or kidney disease or ever had a stomach ulcer or GI bleeding, talk with your doctor before using these medicines.] Be aware of safe lifting methods and do not lift anything over 15 pounds until all the pain is gone. Follow Up with your doctor or this facility if your symptoms do not start to improve after one week. Physical therapy or further testing may be needed. [NOTE: If X-rays were taken, they will be reviewed by a radiologist. You will be notified of any new findings that may affect your care.] Get Prompt Medical Attention if any of the following occur: Pain becomes worse, not controlled by the prescribed medicine Weakness or numbness in one or both legs Numbness in the groin, genital area Loss of bowel or bladder control Methylprednisolone Oral tablet What is this medicine? METHYLPREDNISOLONE (meth ill pred NISS oh lone) is a corticosteroid. It is commonly used to treat inflammation of the skin, joints, lungs, and other organs. Common conditions treated include asthma, allergies, and arthritis. It is also used for other conditions, such as blood disorders and diseases of the adrenal glands. How should I use this medicine? Take this medicine by mouth with a drink of water. Follow the directions on the prescription label. Take it with food or milk to avoid stomach upset. If you are taking this medicine once a day, take it in the morning. Do not take more medicine than you are told to take. Do not suddenly stop taking your medicine because you may develop a severe reaction. Your doctor will tell you how much medicine to take. If your doctor wants you to stop the medicine, the dose may be slowly lowered over time to avoid any side effects. Talk to your donor services coordinator regarding the use of this medicine in children. Special care may be needed. What side effects may I notice from receiving this medicine? Side effects that you should report to your doctor or health resident care supervisor as soon as possible: allergic reactions like skin rash, itching or hives, swelling of the face, lips, or tongue eye pain, decreased or blurred vision, or bulging eyes fever, sore throat, sneezing, cough, or other signs of infection, wounds that will not heal increased thirst mental depression, mood swings, mistaken feelings of self importance or of being mistreated pain in hips, back, ribs, arms, shoulders, or legs swelling of the ankles, feet, hands trouble passing urine or change in the amount of urine Side effects that usually do not require medical attention (report to your doctor or health resident care supervisor if they continue or are bothersome): confusion, excitement, restlessness headache nausea, vomiting skin problems, acne, thin and shiny skin weight gain What may interact with this medicine? Do not take this medicine with any of the following medications: mifepristone This medicine may also interact with the following medications: tacrolimus vaccines warfarin What if I miss a dose? If you miss a dose, take it as soon as you can. If it is almost time for your next dose, talk to your doctor or health resident care supervisor. You may need to miss a dose or take an extra dose. Do not take double or extra doses without advice. Where should I keep my medicine? Keep out of the reach of children. Store at room temperature between 20 and 25 degrees C (68 and 77 degrees F). Throw away any unused medicine after the expiration date. What should I tell my health care provider before I take this medicine? They need to know if you have any of these conditions: Maurice's syndrome diabetes glaucoma heart problems or disease high blood pressure infection such as herpes, measles, tuberculosis, or chickenpox kidney disease liver disease mental problems myasthenia gravis osteoporosis seizures stomach ulcer or intestine disease including colitis and diverticulitis thyroid problem an unusual or allergic reaction to lactose, methylprednisolone, other medicines, foods, dyes, or preservatives or trying to get breast-feeding What should I watch for while using this medicine? Visit your doctor or health resident care supervisor for regular checks on your progress. If you are taking this medicine for a long time, carry an identification card with your name and address, the type and dose of your medicine, and your doctor's name and address. The medicine may increase your risk of getting an infection. Stay away from people who are sick. Tell your doctor or health resident care supervisor if you are around anyone with measles or chickenpox. If you are going to have surgery, tell your doctor or health resident care supervisor that you have taken this medicine within the last twelve months. Ask your doctor or health resident care supervisor about your diet. You may need to lower the amount of salt you eat. The medicine can increase your blood sugar. If you are a diabetic check with your doctor if you need help adjusting the dose of your diabetic medicine. You have been given the following additional information: Back Pain (Acute Or Chronic) Back Pain W/ Sciatica Methylprednisolone Oral tablet (Electronically signed by Jaki Herrera A.R.N.P. 01/21/2017 17:33)
--- NOTE | 2017-01-21 17:33 | ED MAR SUMMARY ---
..... Medication Administration Record [address] [place] [address] Patient: NITO KAUFFMAN Visit ID: [id number] 57y, F Weight: 68.0 kg Height/Length: 66 in BMI: 24.2 ALLERGIES: Doxycycline Given 14:54 01/21/2017 Kisha Che R.N. Medication Administered: TORADOL [IM] (KETOROLAC TROMETHAMINE), Dose: 60 mg IM. Medication Ordered: Toradol IM 60 mg (NOW).
--- NOTE | 2017-01-21 17:33 | ED MED RECONCILIATION SUMMARY ---
Patient: NITO KAUFFMAN Medication Reconciliation Report [facility] VisitID: [id number] [place] [address] 57y, F Registration Date/Time: 01/21/2017 Weight: 68.0 kg Height/Length: 66 in. BMI: 24.2 ALLERGIES: Doxycycline The patient's Home Medications are listed below: THE FOLLOWING MEDICATIONS NEED TO BE RECONCILED: CeleXA Oral HydrOXYzine HCl Oral TiZANidine HCl Oral Vicodin Oral The source(s) of the original Home Medication information: patient The following Medications were given to the patient in the Emergency Department: Toradol [IM] IM 60 mg, administered: 01/21/2017 2:54:00 PM The following Medications were prescribed to the patient: Medrol Dosepak: take according to package directions. Dispense one (1) dosepak. No refills. Substitution is permissible. -- Jaki Herrera A.R.N.P.
== END 2017-01-21 15:00 | disposition home or self-care (01) ==
LOC: ED SRH 14:14
DX: M54.41 Lumbago with sciatica, right side (principal); G89.29 Other chronic pain; F17.210 Nicotine dependence, cigarettes, uncomplicated; Z88.8 Allergy status to other drugs, medicaments and biological substances